=== PATIENT | female | born 1955 | race Caucasian/White ===

== ENCOUNTER 2016-10-07 11:10 | Emergency (ER) | payer BC, OTHER ==
[~2016-10-07] VITALS: Ht 170.2 cm; Wt 66.7 kg
[2016-10-07 12:17] LABS: Urine Bilirubin Negative (Negative); Urine Blood Negative /uL (Negative); Urine Color Yellow (Yellow); Urine Glucose Normal (Normal); Urine Ketone Negative (Negative); Urine Nitrite Negative (Negative); Urine RBC <1 /hpf (0 - 4); Urine Squamous Epithelial Cell FEW /hpf (<5); Urine Urobilinogen Normal (Negative)
[2016-10-07] MEDS: MECLIZINE HCL 25 MG TAB PO ONE ×2 (12:31→12:34)
[2016-10-07 12:34] LABS: Albumin 3.9 g/dL (3.4-5.0); BUN/Creatinine Ratio 27.9; Bilirubin, Total 0.8 mg/dL (0.2-1.0); Calcium 8.9 mg/dL (8.5-10.1); Potassium 3.7 mmol/L (3.5-5.1); Total Protein 7.5 g/dL (6.4-8.2)
[2016-10-07 13:03] LABS: Basophils # (auto) 0 uL; Basophils % (auto) 0.5 % (0.0-2.0); Eosinophils # (auto) 0.1 uL; Eosinophils % (auto) 1.6 % (0.0-7.0); Hemoglobin 14.7 g/dL (12.2-16.2); Lymphocytes # (auto) 1.6 uL; Lymphocytes % (auto) 20.4 % (10.0-50.0); Mean Corpuscular Hemoglobin 32.5 pg (28.0-32.0); Mean Corpuscular Hgb Conc. 34.2 g/dL (32.0-36.0); Mean Corpuscular Volume 94.8 fL (80.0-100.0); Mean Platelet Volume 9.3 fL (7.4-10.4); Monocytes # (auto) 0.4 uL; Neutrophils # (auto) 5.6 uL; Neutrophils % (auto) 72.5 % (37.0-80.0); Platelet Count (auto) 303 10^3/uL (140-450); Red Cell Distribution Width 12.6 % (11.6-16.0); White Blood Cell 7.7 10^3/uL (4.4-10.8)
[2016-10-07 14:08] VITALS: BP 172/71
== END 2016-10-07 17:17 | disposition critical access hospital (66) ==
LOC: ER 11:10
DX: C71.9 Malignant neoplasm of brain, unspecified (principal)
CPT/HCPCS: 36415; 70450; 71010; 80053; 81001; 85025; 93005; 99285; J7030

== ENCOUNTER 2016-12-24 21:06 | Emergency (ER) | payer BC ==
[~2016-12-24] VITALS: Ht 170.2 cm; Wt 68.0 kg
[2016-12-24 22:14] LABS: Hematocrit 34.6 % (36.0-46.0); Hemoglobin 11.7 g/dL (12.2-16.2); Mean Corpuscular Hemoglobin 31.4 pg (28.0-32.0); Mean Corpuscular Hgb Conc. 33.8 g/dL (32.0-36.0); Mean Corpuscular Volume 93.1 fL (80.0-100.0); Mean Platelet Volume 8.9 fL (7.4-10.4); Platelet Count (auto) 274 10^3/uL (140-450); Red Cell Distribution Width 14.1 % (11.6-16.0); SUSPECT VIEW TRANSMISSION; White Blood Cell 8.8 10^3/uL (4.4-10.8)
[2016-12-24 22:31] LABS: Metamyelocytes % 0; Myelocytes % 0; Promyelocytes % 0
[2016-12-24 22:34] LABS: Albumin 2.8 g/dL (3.4-5.0); Alkaline Phosphatase 283 U/L (45-117); Anion Gap 7 (5-15); Aspartate Aminotransferase 327 U/L (15-37); BUN/Creatinine Ratio 15.1; Bilirubin, Total 1.1 mg/dL (0.2-1.0); Blood Urea Nitrogen 8 mg/dL (7-18); Calcium 7.6 mg/dL (8.5-10.1); Carbon Dioxide 24 mmol/L (21-32); Chloride 101 mmol/L (98-107); GFR African American 150 mL/min; GFR Non-African American 124 mL/min; Glucose 103 mg/dL (74-106); Magnesium 2.3 mg/dL (1.6-2.6); Potassium 3.9 mmol/L (3.5-5.1); Sodium 132 mmol/L (136-145)
[2016-12-24 22:36] LABS: B-Type Natriuretic Peptide 91.84 pg/mL (0-100)
[2016-12-24 22:38] LABS: Temperature: 23.5 C (20.0-25.0)
[2016-12-24 22:44] LABS: INR 1.09 (0.9-1.15); Partial Thromboplastin Time 28.2 sec (22.64-33.71); Prothrombin Time 11.9 sec (9.37-12.3)
[2016-12-24 22:55] LABS: Reactive Lymphocytes 5
[2016-12-24 22:56] LABS: Anisocytosis Slight; Platelet Estimate Adequate
[2016-12-25] MEDS ORDERED: ONDANSETRON HCL 4 MG/2 ML VIAL IV ONE (01:15)
[2016-12-25] MEDS ORDERED: HYDROmorphone HCL 2 MG/ML VL IV ONE (01:15)
[2016-12-25 02:52] VITALS: BP 107/62
== END 2016-12-25 05:46 | disposition home or self-care (01) ==
LOC: ER 21:10
DX: K72.00 Acute and subacute hepatic failure without coma (principal); I10 Essential (primary) hypertension; C79.31 Secondary malignant neoplasm of brain; Z85.9 Personal history of malignant neoplasm, unspecified; G93.89 Other specified disorders of brain
CPT/HCPCS: 36415; 71010; 80053; 83735; 83880; 84484; 85007; 85027; 85610; 85730; 93005; 96374; 96375; 99285; J1170; J2405

== ENCOUNTER 2018-09-23 19:05 | Emergency (ER) | payer BC ==
[~2018-09-23] VITALS: Ht 170.2 cm; Wt 52.2 kg
[2018-09-23 20:23] LABS: Hematocrit 26.4 % (36.0-46.0); Mean Corpuscular Hemoglobin 31.9 pg (28.0-32.0); Mean Corpuscular Hgb Conc. 34.1 g/dL (32.0-36.0); Mean Corpuscular Volume 93.4 fL (80.0-100.0); Platelet Count (auto) 65 10^3/uL (140-450); Red Blood Cells 2.83 10^6/uL (4.0-5.20); Red Cell Distribution Width 12.4 % (11.8-14.3)
[2018-09-23 20:35] LABS: White Blood Cell 0.4 10^3/uL (4.4-10.8)
[2018-09-23 20:36] LABS: INR 0.95 (0.9-1.15); Partial Thromboplastin Time 29.2 sec (23.78-33.04); Prothrombin Time 10.2 sec (9.27-12.13)
[2018-09-23 20:37] LABS: Band Neutrophils % (manual) 0; Basophils % (manual) 0 (0.0-2.0); Blast Cells 0; Eosinophils % (manual) 0 (0-7); Metamyelocytes % 0; Myelocytes % 0; Promyelocytes % 0; Reactive Lymphocytes 0
[2018-09-23 20:39] LABS: Albumin 2.5 g/dL (3.4-5.0); Calcium 8.5 mg/dL (8.5-10.1); Potassium 4.9 mmol/L (3.5-5.1)
[2018-09-23 20:44] LABS: BUN/Creatinine Ratio 19.4; Bilirubin, Total 0.3 mg/dL (0.2-1.0); Total Protein 6.2 g/dL (6.4-8.2)
[2018-09-23] MEDS ORDERED: SODIUM CHLORIDE 0.9% 1,000 ML IV ONE (20:45)
[2018-09-23 20:47] LABS: Urine Bacteria None Seen /hpf (None Seen)
[2018-09-23 21:05] LABS: Urine Blood 3+ /uL (Negative); Urine Specific Gravity 1.025 (1.001-1.035)
[2018-09-23 21:06] LABS: Urine WBC FEW /hpf (0 - 5)
[2018-09-23 21:17] LABS: Magnesium 2.3 mg/dL (1.6-2.6)
[2018-09-23 21:22] LABS: Lymphocytes % (manual) 20 (10.0-50.0); Monocytes % (manual) 64 (0-12)
[2018-09-23] MEDS ORDERED: CLINDAMYCIN 900MG IV 50 ML IV ONE (21:30)
[2018-09-23] MEDS ORDERED: VANCOMYCIN 1GM/250ML 250 ML IV ONE (21:30)
[2018-09-23] MEDS ORDERED: PIPERACILLIN-TAZOB 3.375GM 100 ML IV ONE (21:30)
[2018-09-24] MEDS ORDERED: ACETAMINOPHEN 325 MG TAB PO PRN (00:15)
[2018-09-24] MEDS ORDERED: SODIUM CHLORIDE 0.9% 1,000 ML IV ONE (00:15)
[2018-09-24] MEDS ORDERED: VANCOMYCIN PER PHARMACY 0 MG IV SCH (00:15)
[2018-09-24] MEDS: SODIUM CHLORIDE 0.9% 1,000 ML IV SCH ×2 (00:15→13:37)
[2018-09-24] MEDS: MORPHINE SULFATE 4 MG/ML SYR/VIAL IV PRN ×2 (03:47→06:18)
[2018-09-24] MEDS: ONDANSETRON HCL 4 MG/2 ML VIAL IV PRN ×2 (03:47→09:54)
[2018-09-24] MEDS: GABAPENTIN 300 MG CAP PO SCH ×3 (06:00→14:00)
[2018-09-24] MEDS: PIPERACILLIN-TAZOB 2.25GM 50 ML IV SCH ×3 (06:19→18:00)
[2018-09-24] MEDS ORDERED: MEMANTINE HCL 5 MG TAB PO SCH (10:00)
[2018-09-24 10:50] LABS: Mean Corpuscular Hgb Conc. 34.4 g/dL (32.0-36.0); Red Cell Distribution Width 12.7 % (11.8-14.3)
[2018-09-24 10:52] LABS: Hematocrit 23.6 % (36.0-46.0); Hemoglobin 8.1 g/dL (12.2-16.2); Mean Corpuscular Hemoglobin 32.5 pg (28.0-32.0); Mean Corpuscular Volume 94.3 fL (80.0-100.0); Platelet Count (auto) 70 10^3/uL (140-450); Red Blood Cells 2.51 10^6/uL (4.0-5.20)
[2018-09-24 11:00] LABS: White Blood Cell 0.4 10^3/uL (4.4-10.8)
[2018-09-24 11:01] LABS: Basophils % (manual) 0 (0.0-2.0); Blast Cells 0; Metamyelocytes % 0; Myelocytes % 0; Promyelocytes % 0
[2018-09-24 11:11] LABS: BUN/Creatinine Ratio 20.7; Calcium 7.9 mg/dL (8.5-10.1); Potassium 4.1 mmol/L (3.5-5.1)
[2018-09-24 12:32] LABS: Band Neutrophils % (manual) 6; Eosinophils % (manual) 2 (0-7); Lymphocytes % (manual) 31 (10.0-50.0); Monocytes % (manual) 39 (0-12); Reactive Lymphocytes 2
[2018-09-24 18:27] VITALS: BP 102/50
[2018-09-24] MEDS ORDERED: VANCOMYCIN 750 MG in D5W 5% 250 ML IV SCH (22:00)
== END 2018-09-24 18:52 | disposition short-term general hospital (02) ==
LOC: ER 19:09 → MERGE 19:09 → ER 09-24 18:52
DX: D61.818 Other pancytopenia (principal); C79.2 Secondary malignant neoplasm of skin
CPT/HCPCS: 36415; 71045; 80048; 80053; 81001; 83735; 83880; 84484; 85007; 85027; 85610; 85730; 86141; 87040; 87086; 93005; 96365; 96366; 96368; 96375; 99284; J2270; J2405; J2543; J3370; J3490; J7030